=== PATIENT | female | born 1960 ===

== ENCOUNTER 2016-07-31 08:50 | Day surgery (SDC) | payer OTHER ==
[~2016-07-31 08:50] MED LIST: LIDOCAINE HCL 1% MPF SOL ONE; PROPOFOL 500 MG/50 ML EMU IV ONE
[2016-07-31 10:26] VITALS: BP 132/87; PULSE 70; RESP 18; TEMP 97.5; O2SAT 98
== END 2016-07-31 11:15 | disposition home or self-care (01) ==
LOC: SURG 08:50
PROVIDERS: ATTEND Surgery
DX: Z12.11 Encounter for screening for malignant neoplasm of colon (principal); Z86.010 Personal history of colon polyps; K57.30 Diverticulosis of large intestine without perforation or abscess without bleeding
CPT/HCPCS: 45378; J2001; J2704

== ENCOUNTER 2018-07-23 17:33 | Emergency (ER) | payer BC, OTHER ==
[2018-07-23] MEDS ORDERED: KETOROLAC TROMETHAMINE 30 MG/ML SOL IM ONE (18:06)
[2018-07-23] MEDS ORDERED: CYCLOBENZAPRINE 10 MG TAB PO ONE ×2 (18:06→21:09)
[2018-07-23] MEDS ORDERED: SODIUM CHLORIDE 0.9% 1000ML 1,000 ML IV ONE ×3 (18:07→21:19)
[2018-07-23] MEDS ORDERED: KETOROLAC TROMETHAMINE 30 MG/ML SOL IV ONE (18:08)
[2018-07-23] MEDS ORDERED: KETOROLAC TROMETHAMINE 30 MG/ML SOL ONE (18:09)
[2018-07-23] MEDS ORDERED: LORAZEPAM 2 MG/ML SOL ONE ×2 (18:19→22:28)
[2018-07-23 18:20] LABS: BASOPHILS % (AUTO) 1 % (0-3); EOSINOPHILS % (AUTO) 3 % (0-9); HEMATOCRIT 43 % (35-47); HEMOGLOBIN 14.1 gm/dl (12.0-15.5); LYMPHOCYTES % (AUTO) 27.5 % (10-50); MEAN CORPUSCULAR HEMOGLOBIN 28.2 pg (27.0-32.0); MEAN CORPUSCULAR HGB CONC 32.7 gm/dl (32.0-36.0); MEAN CORPUSCULAR VOLUME 86 fL (81-99); MONOCYTES % (AUTO) 6.7 % (0-12); NEUTROPHILS % (AUTO) 61.8 % (37-80)
[2018-07-23] MEDS: LORAZEPAM 2 MG/ML 10ML MDV 2 MG/ML VIAL IV PRN ×2 (18:22→22:31)
[2018-07-23 18:27] LABS: CALCIUM 8.9 mg/dl (8.5-10.1); CARBON DIOXIDE 29.5 mEq/L (21-32); CREATININE 0.76 mg/dl (0.60-1.00); POTASSIUM 3.5 mMol/L (3.5-5.1)
[2018-07-23] MEDS ORDERED: CYCLOBENZAPRINE 10 MG TAB ONE (18:30)
[2018-07-23] MEDS ORDERED: APAP/HYDROCODONE 1 EACH TABLET PO ONE (18:33)
[2018-07-23 18:36] VITALS: TEMP 97.6
[2018-07-23] MEDS ORDERED: APAP/HYDROCODONE 1 EACH TABLET ONE (18:37)
[2018-07-23] MEDS ORDERED: MORPHINE SULFATE 10 MG/ML SOL ONE ×2 (19:08→20:33)
[2018-07-23] MEDS ORDERED: MORPHINE SULFATE 10 MG/ML SOL IV ONE ×2 (19:10→19:24)
[2018-07-23 20:18] LABS: APPEARANCE,URINE Clear; BILIRUBIN,URINE NEGATIVE (NEGATIVE); COLOR,URINE Yellow; GLUCOSE, URINE (UA) NEGATIVE (NEGATIVE); KETONES,URINE NEGATIVE (NEGATIVE); LEUKOCYTE ESTERASE ,URINE NEGATIVE (NEGATIVE); NITRATE,URINE NEGATIVE (NEGATIVE); OCCULT BLOOD,URINE NEGATIVE (NEG-TRACE)
[2018-07-23 20:22] LABS: BACTERIA 1+ (< 1+); CRYSTALS NEGATIVE (0-3 AVE/HPF); RBC,URINE 0-2 (0-3AV/HPF)
[2018-07-23] MEDS ORDERED: IBUPROFEN 400 MG TAB PO ONE (22:25)
[2018-07-23] MEDS ORDERED: IBUPROFEN 400 MG TAB ONE (22:27)
[2018-07-23 23:04] VITALS: BP 137/95; PULSE 70; RESP 16; O2SAT 92
== END 2018-07-23 22:45 | disposition home or self-care (01) ==
LOC: ED 17:33
DX: M62.838 Other muscle spasm (principal)
CPT/HCPCS: 36415; 73701; 80048; 81001; 82550; 83735; 85025; 85378; 96365; 96366; 96374; 96375; 99283; 99285; J1885; J2060; J2270; Q9967; A9270-GY